=== PATIENT | female | born 1985 | race Caucasian/White ===

== ENCOUNTER 2020-05-11 16:20 | Emergency (ER) | payer OTHER, SELFPAY ==
--- NOTE | ~2020-05-11 | XR_ITS ---
XR foot LT min 3V 05/11/2020 16:47 INDICATION: Left foot pain and bruising PROCEDURE: 4 views left foot COMPARISON: No prior studies for comparison. FINDINGS: There is a probable avulsion fracture lateral margin of the cuboid. Lisfranc joint intact. The soft tissues appear within normal limits. No foreign bodies are identified. IMPRESSION: 1: Probable avulsion fracture lateral margin of the cuboid. Correlate for point tenderness. Reviewed, dictated and finalized at location A.
[2020-05-11 16:35] VITALS: BP 181/122; PULSE 85; RESP 16; TEMP 37.3; O2SAT 100
--- NOTE | 2020-05-11 16:49 | PC.NURSE ---
1633- Pt states, her BP always runs this high, was advised to f/u with her PCP.
--- NOTE | 2020-05-11 16:50 | ED.LOWEXIN ---
HPI - Extremity Injury (Lower) General Chief Complaint: Extremity Injury, Lower Stated Complaint: Left ankle injury Time Seen by Provider: 05/11/20 16:51 Source: patient and RN notes reviewed Mode of arrival: ambulatory Limitations: no limitations History of Present Illness HPI Narrative: This is a 34 years old female presents to the office for an evaluation of left ankle injury a week ago. She rolled her ankle from missed step going down. She inverted her foot; currently complains of pain, swelling and bruising. She has tried ice, elevation, conrad bandage with no relief. Denies any other injury/trauma. Related Data Home Medications Medication Instructions Recorded Confirmed metoprolol succinate [Toprol XL] 25 mg PO DAILY 05/11/20 05/11/20 norgestrel-ethinyl estradiol 1 tablet DAILY 05/11/20 05/11/20 [Low-Ogestrel (28)] Allergies Allergy/AdvReac Type Severity Reaction Status Date / Time No Known Allergies Allergy Verified 05/03/18 14:44 NKDA Allergy Unknown Uncoded 04/27/03 12:31 NKFA Allergy Unknown Uncoded 04/27/03 12:31 Review of Systems Review of Systems: Narrative: CONSTITUTIONAL: Denies fever CARDIOVASCULAR: Denies chest pain RESPIRATORY: Denies dyspnea GASTROINTESTINAL: Denies abdominal pain, nausea, vomiting SKIN: Denies rash MUSCULOSKELETAL: Reports left ankle pain, swelling, bruising NEUROLOGIC: Denies lightheaded/numbness All other systems reviewed are negative, except as documented in HPI. [facility] Past Medical History Medical History (Updated 05/11/20 @ 17:13 by ROSEMARIE Luciano) HTN (hypertension) Family History Family History Father Hypertension Sibling Family history of elevated blood lipids Social History Social History Smoking status: Never smoker Alcohol intake: current Gender identity (if verbalized by the patient): Female Comments At time of signature, I agree with nursing past medical, surgical, social and family history. There is no relevant family history pertinent to the presenting complaint. Exam Narrative: Exam Narrative: GENERAL: This is a well-nourished, well-developed patient, in no apparent distress. CARDIOVASCULAR: Regular rate and rhythm without murmurs, gallops, or rubs. RESPIRATORY: Clear to auscultation. Breath sounds equal bilaterally. No wheezes, rales, or rhonchi. GASTROINTESTINAL: Abdomen soft, non-tender, nondistended. Bowel sounds are active. No hepato-splenomegaly, or palpable masses. No guarding. SKIN: warm, intact with no suspicious lesions or rash, good texture and turgor. NEURO: awake, alert, and oriented to person, place and time. There were no obvious focal neurologic abnormalities. Steady gait EXTREMITIES: Affected lateral ankle not swollen but there is tenderness and swelling with ecchymosis over the dorsum of the foot. Range of motion limited secondary to pain. No deformity. The skin is intact. [place] Coma Scale Eye Opening: Spontaneous 4 [place] Coma Scale Motor: Obeys Commands 6 [place] Coma Scale Verbal: Oriented 5 Course Vital Signs Vital signs: Vital Signs Temperature 99.2 F 05/11/20 16:35 Pulse Rate 85 05/11/20 16:35 Respiratory Rate 16 05/11/20 16:35 Blood Pressure 181/122 H 05/11/20 16:35 Pulse Oximetry 100 05/11/20 16:35 Temperature 99.2 F 05/11/20 16:35 Pulse Rate 85 05/11/20 16:35 Respiratory Rate 16 05/11/20 16:35 Blood Pressure 181/122 H 05/11/20 16:35 Pulse Oximetry 100 05/11/20 16:35 MDM - Extremity Injury (Lower) MDM Narrative Medical decision making narrative: Elevated blood pressure noted, patient is aware of her high blood pressure, she said that she needs to do a better job in monitoring her blood BP and she will definitely follow-up with her doctor or sooner she get back from vacation in [place] this week. Discharge instructions reviewed with patient, a
== END 2020-05-11 17:18 | disposition home or self-care (01) ==
PROVIDERS: Emergency Provider Nurse Practitioner; PCP Family Medicine
DX: S82.892A Other fracture of left lower leg, initial encounter for closed fracture (principal); X50.9XXA Other and unspecified overexertion or strenuous movements or postures, initial encounter; I10 Essential (primary) hypertension
CPT/HCPCS: 73630; 99214; G0463

== ENCOUNTER → 2021-03-03 10:39 | Outpatient (CLI) | payer OTHER, SELFPAY ==
--- NOTE | ~2021-03-03 | MR_ITS ---
EXAMINATION: MR foot LT wo con DATE: 03/03/2021 11:29 INDICATION: Left forefoot pain TECHNIQUE: Magnetic resonance imaging (MRI) of the left fore/mid foot was performed without intraveno us contrast. Sequences included sagittal T1-weighted FSE, sagittal fluid sensitive FSE STIR, coronal PD-weighted FS FSE, coronal T1-weighted FSE, axial PD-weighted FS FSE, and axial PD-weighted FSE. COMPARISON: None FINDINGS: Bone alignment is normal. Grade 3 stress injury at the mid diaphysis of the third metatarsal with per iosteal edema and marrow edema with associated decreased T1 signal but without discrete fracture line or cortical signal change. There is small amount of residual increased fluid signal along the centra l aspect of the sagittally oriented fracture to lateral aspect of the cuboid which has healed in norm al alignment. Marrow signal is otherwise normal. Joint spaces are normal with no joint effusions. Lis franc ligament complex and the collateral ligament complex at the metatarsophalangeal and interphalan geal joints are normal. Flexor and extensor tendons are normal as is the intrinsic musculature of the foot. IMPRESSION: 1. Grade 3 stress injury of the third metatarsal diaphysis. Reviewed, dictated and finalized at location A.
== END ==
PROVIDERS: Visit Provider Nurse Practitioner Family
DX: M79.672 Pain in left foot (principal)
CPT/HCPCS: 73718

== ENCOUNTER 2022-06-23 13:31 | Emergency (ER) | payer BC, SELFPAY ==
--- NOTE | 2022-06-23 13:35 | ED.URI ---
HPI - URI/Sore Throat General Chief Complaint: Upper Respiratory Infection Stated Complaint: cough,sore throat,chest mica Time Seen by Provider: 06/23/22 13:35 Source: patient Mode of arrival: ambulatory Limitations: no limitations History of Present Illness HPI Narrative: Ms. Thurman is a 36-year-old female patient presenting to the clinic today with complaints of cough, sore throat, and chest congestion times 3 days She reports she has taken 2 COVID test at home and they are both negative last test was this morning. She denies any known exposure to anyone with strep or influenza. She denies any fever. Has a nonproductive cough. Related Data Allergies Allergy/AdvReac Type Severity Reaction Status Date / Time No Known Allergies Allergy Verified 06/23/22 13:55 Review of Systems Review of Systems: Pertinent positives per HPI. Patient denies any fever, chills, rash, headache, visual changes, dizziness, cough, runny nose, sore throat, shortness of breath, chest pain, palpitations, nausea, vomiting, diarrhea, constipation, abdominal pain, or any urinary issues. PMFSH Past Medical History Medical History Cuboid fracture Cuboid fracture with nonunion HTN (hypertension) Left foot pain Obesity Peroneal tendonitis Repetitive stress injury Family History Family History Father Hypertension Sibling Family history of elevated blood lipids Other Diabetes mellitus Malignant neoplasm Social History Social History Smoking status: Never smoker Alcohol intake: current Alcohol use details: social Substance use: never Substance use type: does not use Gender identity (if verbalized by the patient): Female Sexual Orientation (if Verbalized by the Patient): Straight or Heterosexual Comments At the time of my signature, I reviewed and agree with the nursing past medical, surgical, social, and family history. There is no relevant family history pertinent to the patient complaint. Exam Narrative: General: Well-developed, well nourished, in no apparent distress Head: Normocephalic, atraumatic Eyes: Pupils equally round and reactive to light bilaterally, EOM intact, sclera and conjunctive clear, no discharge, lids normal Ears: TMs intact and dull, ear canals clear, no drainage, grossly hearing normal. Nose: Nares patent, clear nasal discharge, mild inflammation, no sinus tenderness. Mouth: Oropharynx without lesions or masses, good dentition, MMM. Oropharynx red, postnasal drip Neck: Supple, trachea midline, no enlargement of anterior or posterior cervical nodes, no thyroid masses or goiter palpable. Cardio: Regular rate and rhythm, s1 and s2 normal, no murmur appreciated. Resp: Clear to auscultation bilaterally anteriorly and posteriorly, no rhonchi, rales, wheezing or rubs Course Course Emergency Course: Portions of this record may have been created with voice recognition software. Level of Care: Express Care Visit Vital Signs Vital signs: Vital Signs Temperature 37.3 C 06/23/22 13:46 Pulse Rate 99 06/23/22 13:46 Respiratory Rate 16 06/23/22 13:46 Blood Pressure 152/97 H 06/23/22 13:46 Pulse Oximetry 100 06/23/22 13:46 Oxygen Delivery Room Air 06/23/22 13:46 Temperature 37.3 C 06/23/22 13:46 Pulse Rate 99 06/23/22 13:46 Respiratory Rate 16 06/23/22 13:46 Blood Pressure 152/97 H 06/23/22 13:46 Pulse Oximetry 100 06/23/22 13:46 Oxygen Delivery Room Air 06/23/22 13:46 Vital signs reviewed MDM - URI/Sore Throat MDM Narrative Medical decision making narrative: At the time of visit patient is resting comfortably on the exam table. I suspect the patient has an upper respiratory infection with pharyngitis. Supportive measures were discussed with the patient she voiced unders
[2022-06-23 13:46] VITALS: BP 152/97; PULSE 99; RESP 16; TEMP 37.3; O2SAT 100
== END 2022-06-23 13:58 | disposition home or self-care (01) ==
PROVIDERS: Emergency Provider Nurse Practitioner Family; PCP Nurse Practitioner
DX: J06.9 Acute upper respiratory infection, unspecified (principal); J02.9 Acute pharyngitis, unspecified; I10 Essential (primary) hypertension
CPT/HCPCS: 87081; 99213; G0463